=== PATIENT | male | born 1970 | race Caucasian/White ===

== ENCOUNTER 2016-10-07 10:04 | Day surgery (SDC) | payer OTHER ==
[2016-10-06 16:01] VITALS: BMI 35.9
[2016-10-07] MEDS ORDERED: morphine CARPU-JECT 10 MG/1 ML DISP.SYRIN ONE (13:36)
[2016-10-07] MEDS ORDERED: BUPIVACAINE HCL/PF 0.5% (5MG/ML) 10 ML VIAL ONE (13:37)
[2016-10-07] MEDS ORDERED: PROPOFOL 20 ML ONE (13:41)
[2016-10-07] MEDS ORDERED: SUCCINYLCHOLINE CHLORIDE 200 MG/10 ML VIAL ONE (13:41)
[2016-10-07] MEDS ORDERED: ONDANSETRON 4 MG/2 ML VIAL ONE (13:42)
[2016-10-07] MEDS ORDERED: MIDAZOLAM HCL 2 MG/2 ML SINGLE DOSE VIAL ONE ×2 (13:42→14:10)
[2016-10-07] MEDS ORDERED: ceFAZolin SODIUM 1 GM VIAL ONE (13:42)
[2016-10-07] MEDS ORDERED: DEXAMETHASONE SOD PHOSPHATE 4 MG/1 ML VIAL ONE (13:42)
[2016-10-07] MEDS ORDERED: HYDROmorphone HCL/PF 1 MG/ML VIAL (FOR PYXIS CHARGING ONLY) ONE (14:47)
[2016-10-07] MEDS ORDERED: oxyCODONE HCL 5 MG TABLET PO PRN ×2 (15:58)
[2016-10-07] MEDS ORDERED: ONDANSETRON 4 MG/2 ML VIAL IVPUSH PRN (15:58)
[2016-10-07] MEDS ORDERED: LACTATED RINGERS SOLUTION 1,000 ML IV SCH (16:00)
[2016-10-07 16:33] VITALS: TEMP 97.6
[2016-10-07 17:24] VITALS: BP 127/73; PULSE 74
--- NOTE | 2016-10-07 18:52 | OP ---
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 POSTOPERATIVE DIAGNOSIS: Osteochondral defect, right ankle chondromalacia, hypertrophic synovium, joint debris, loose body within the right ankle joint. PROCEDURE PERFORMED: Operative arthroscopy of the right ankle with joint debridement, chondroplasty, movement of loose body, debridement of osteochondral defect on the dome of the talus, synovectomy. SURGEON: Michelle Beltrán M.D. LAW LIBRARIAN: MARNIE Guzman ANESTHESIOLOGIST: Patrick Sharma M.D. ANESTHESIA: General anesthesia. Procedure consisted of the patient being brought in the operating room and gently transferred from the stretcher to the OR table with all bony prominences well padded. The right leg was prepared and draped in sterile fashion. Patient given intravenous antibiotics and copious irrigation throughout the procedure to minimize risk of infection. A complete risks and benefits discussion which included but not limited to infection, bleeding, , paralysis, increased pain, need for repeat surgery. Patient asked questions about the procedure and decided to proceed with surgical treatment. Following that, an appropriate timeout was conducted, which incorporated the patient's name, site of surgery, type of surgery. Following this, sterile preparation and draping of the right leg was performed. Patient was given intravenous antibiotics and copious irrigation throughout the procedure to minimize risk of infection. Medial and lateral portals were used to introduce the arthroscope and arthroscopic instruments. Gentle traction between 8 to 10 pounds was applied across the ankle joint using a distraction device. The tibiotalar joint was evaluated. There was noted to be hypertrophic synovium, and extensive partial synovectomy was performed. There was noted to be joint debridement in the ankle joint. Joint debridement was performed. There was noted to be an osteochondral defect on the dome of the talus, and this was debrided using shaver and radiofrequency wand. Loose body was identified, the grasper was used to grasp the body and remove this from the field. This was sent for pathology. The distal articular surface and the dome of the talus were noted to have chondromalacia, and a chondroplasty was performed. The ankle joint was then copiously irrigated, and wounds were closed with 4-0 undyed Vicryl followed by Steri-Strips, Xeroform, 4x4s, covered by sterile Webril, Markie bandages, and a boot. An immobilization boot was applied. Patient was then gently woken from anesthesia without incident, transferred from the operating room to the recovery room in satisfactory condition and no intraoperative complications. MICHELLE BELTRÁN M.D. BETTY/[id number] MTDD
--- NOTE | 2016-10-12 13:32 | PATH ---
Surgical Pathology Report Patient Name: WENDI SUGGS [facility]. Rec. #: [id number] /Age/Gender: 1970 (Age: 46) / M Account: [id number] Location: [facility] AM[facility] Taken: 10/07/2016 Received: 10/07/2016 Reported: 10/12/2016 Physicians: Joshua Beltrán M.D. Specimen(s) Received LOOSE BODY WITHIN RIGHT ANKLE JOINT Clinical History Internal derangement right ankle Final Diagnosis LOOSE BODY, RIGHT ANKLE JOINT, REMOVAL: LOOSE BODY. Electronically Signed Cecilia Amador M.D. Gross Description Received in formalin labeled "loose body within right ankle joint," is a 0.3 x 0.3 x 0.2 cm lugo, irregular portion of calcified tissue. The specimen is submitted in toto in one cassette, following decalcification. /10/10/201610/10/2016
== END 2016-10-07 17:25 | disposition home or self-care (01) ==
LOC: FASU 10:04
PROVIDERS: ATTEND Orthopaedic Surgery
PROC: 0QBG4ZZ Excision of Right Tibia, Percutaneous Endoscopic Approach (ICD-10-PCS; 2016-10-07)
PROC: 0SB Lower Joints, Excision (ICD-10-PCS; 2016-10-07)
PROC: 0SCF4ZZ Extirpation of Matter from Right Ankle Joint, Percutaneous Endoscopic Approach (ICD-10-PCS; 2016-10-07)
PROC: 0SBF4ZZ Excision of Right Ankle Joint, Percutaneous Endoscopic Approach (ICD-10-PCS; principal; 2016-10-07 12:30)
DX: M24.871 Other specific joint derangements of right ankle, not elsewhere classified (principal); M93.271 Osteochondritis dissecans, right ankle and joints of right foot; M94.271 Chondromalacia, right ankle and joints of right foot; M67.271 Synovial hypertrophy, not elsewhere classified, right ankle and foot; M24.071 Loose body in right ankle
CPT/HCPCS: 88304-TC; 94760